=== PATIENT | female | born 1975 | race Caucasian/White ===

== ENCOUNTER 2017-01-13 05:23 | Inpatient (IN) | payer BC ==
[2017-01-02 13:35] VITALS: BMI 34.0
--- NOTE | 2017-01-07 11:56 | HISTORY & PHYSICAL EXAMINATION ---
DATE OF ADMISSION: 01/13/2017 CHIEF COMPLAINT: Right hip pain. HISTORY OF PRESENT ILLNESS: This patient is a 41-year-old female, who works as a nurse at the [employer] who presents for treatment of her right hip. She has got a lifelong history of hip pain and discomfort that she states started in her adolescent years. 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 She underwent a left hip replacement about 7-8 months ago and has done well from this in general. She continues to be bothered by right hip pain. She has lost a lot of weight trying to manage this, but unsuccessfully. She is limited by groin pain, thigh pain and discomfort. She has limited walking tolerance. She has difficulty putting her shoes and socks on. She would now like to proceed with right total hip replacement. PAST MEDICAL HISTORY: Significant for: 1. Heart murmur. 2. Asthma. 3. Anxiety. 4. Gestational diabetes. 5. Obesity with a BMI of 34.5. 6. Gastroesophageal reflux disease. 7. Social smoker. 8. Alcohol 4-6 drinks per week. PREVIOUS SURGERIES: Include: 1. Right thumb surgery in 1990. 2. . 3. Left total hip replacement done 05/13/2016. ALLERGIES: CELEXA WHICH CAUSES CONFUSION. CURRENT MEDICINES: Include: 1. Ventolin inhaler two puffs p.r.n. 2. Flexeril 10 mg for neck pain. 3. Ativan 0.5 mg p.r.n. for anxiety. 4. Phentermine 37.5 mg a day for weight loss. SOCIAL HISTORY: A 41-year-old female. 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 She is , 4-6 drinks per week. Does smoke socially. FAMILY HISTORY: Include heart disease and diabetes. REVIEW OF SYSTEMS: Negative for diabetes, neurologic problems, vascular problems or bleeding disorders. No history of chest pain. No shortness of breath. No history of DVT or PE. PHYSICAL EXAMINATION: GENERAL: Reveals a healthy, pleasant middle-aged female, who looks to be in good health. HEENT: Benign. NECK: Supple. No lymphadenopathy. LUNGS: Clear to auscultation. HEART: Regular rate and rhythm. ABDOMEN: Soft, nontender, nondistended. EXTREMITIES: Grossly neurovascularly intact except as follows. Examination of both hip reveals the patient walks with a slightly antalgic gait. Examination of left hip reveals the incision to be healed nicely. A little bit of thickening of the soft tissues in that area. She is about a 0.5 cm to a cm longer in the left compared to the right. No pain with hip motion. Examination of the right hip reveals a very stiff hip. She has about a 0.5 cm to a cm short on this side. She has a very minimal hip motion. Very stiff hip. She is neurologically intact. Negative straight leg raise. X-RAYS: X-rays of the right hip reveal advanced right hip DJD. She has got complete loss of her superior joint space. She has got osteophytes in bone growths around her hip. Likely has an old slipped capital femoral epiphysis that has healed. The left hip replacement looks to me in good position. ASSESSMENT: A 41-year-old female, 7.5 months out from a left total hip replacement with advanced right hip degenerative joint disease, probably related to a previous slipped capital femoral epiphysis. She has failed conservative treatment and would like a right hip replaced. She is happy with the left hip. PLAN: We are going to take her to the operating room and do a right total hip replacement. The risks and benefits of this procedure were explained to the patient including but not limited to DVT, PE, , infection, neurological injury, vascular injury, bleeding problem, pain, limited range of motion, stiffness, failure to relieve her symptoms, incomplete relief of symptoms, need for further surgery in the future, fracture, leg length inequality, nerve palsy, etc. The patient understands and desires to proceed. Informed consent was obtained. As far as discharge plans, she should be able to be discharged to home, using the [facility] home health program. She did well with that last time. I did tell we will do the best we can to get her leg length equal. MTDD
[~2017-01-13] VITALS: Ht 170.2 cm; Wt 100.0 kg
[2017-01-13] VITALS (9 sets, daily range): BP systolic 99–115; BP diastolic 57–74; PULSE 59–76; TEMP 36.4–37.2; O2SAT 97–99; Ht 170.2 cm; Wt 100.0 kg
[~2017-01-13 05:23] MED LIST: ACET-1256 PO; ALBUAER2 INH; CYCL10TA6 PO; IBUP-1050 PO; LORA-741 PO; NAPR1TAB9 PO; PSYL48.59 PO
[2017-01-13] MEDS ORDERED: TRANEXAMIC ACID INJ 1,000 MG in SODIUM CHLORIDE 0.9% 100ML 100 ML IV SCH (06:00)
[2017-01-13] MEDS ORDERED: LACTATED RINGER'S 1000ML IV SCH (06:00)
[2017-01-13] MEDS ORDERED: LACTATED RINGER'S 1000ML 1,000 ML IV SCH (06:00)
[2017-01-13] MEDS ORDERED: METOCLOPRAMIDE HCL 10 MG TAB PO SCH (06:00)
[2017-01-13] MEDS ORDERED: LACTATED RINGER'S 1000ML 500 ML IV ONE (06:00)
[2017-01-13] MEDS ORDERED: CEFAZOLIN 2000 MG/60 ML D5W 60 ML IV SCH (06:00)
[2017-01-13] MEDS ORDERED: GABAPENTIN 300 MG CAP PO SCH (06:00)
[2017-01-13] MEDS ORDERED: FAMOTIDINE 20 MG TAB PO SCH (06:00)
[2017-01-13] MEDS ORDERED: SCOPOLAMINE 1.5 MG TDSY TD SCH (06:00)
[2017-01-13] MEDS ORDERED: ACETAMINOPHEN 500 MG TAB PO SCH (06:00)
[2017-01-13] MEDS ORDERED: BUPIVACAINE 0.5 % 5 MG/1 ML PF 10ML VIAL ONE (06:28)
[2017-01-13] MEDS ORDERED: BUPIVACAINE/EPINEPHRINE 0.5% MPF 1:200,000 30 ML VIAL ONE (06:33)
[2017-01-13] MEDS ORDERED: BACITRACIN 50000 UNIT VIAL ONE (06:33)
--- NOTE | 2017-01-13 06:43 | History & Physical Bridge Note ---
H&P Re-Evaluation Bridge Note: I have examined the patient, reviewed the History & Physical and in the interval since the performance of the History & Physical I have noted the following changes of clinical significance: No changes noted
[2017-01-13] MEDS ORDERED: MIDAZOLAM HCL 1 MG/ML 2ML VIAL ONE ×2 (06:45→06:46)
[2017-01-13] MEDS ORDERED: FENTANYL CITRATE INJ 50 MCG/1 ML 2 ML VIAL ONE ×3 (06:46→08:57)
[2017-01-13] MEDS ORDERED: LIDOCAINE HCL 2% 2 ML VIAL (20MG/ML) ONE (07:51)
[2017-01-13] MEDS ORDERED: EpHEDrine SULFATE 50MG/5ML SYR ONE (07:51)
[2017-01-13] MEDS ORDERED: PROPOFOL IV EMULSION 10 MG/ML 20 ML VIAL IV ONE (07:51)
[2017-01-13] MEDS ORDERED: KETAMINE HCL INJ 50 MG/ML 10 ML VIAL ONE (08:00)
[2017-01-13] MEDS ORDERED: CEFAZOLIN SOD 1 GM VIAL ONE (08:00)
--- NOTE | 2017-01-13 09:05 | [facility] Post Operative Brief Note ---
Immediate Operative Summary Operative Date Jan 13, 2017. Pre-Operative Diagnosis Right Hip Advanced Degenerative Joint Disease Post-Operative Diagnosis Right Hip Advanced Degenerative Joint Disease Procedure(s) Performed Right Total Hip Arthroplasty--Uncemented Surgeon Dr. Braga Supervisor Phosphatic Fertilizer Surgeon(s) JERRY Perera Estimated Blood Loss 400 cc Findings Right Hip DJD Fluids (cc crystalloids) 1300 cc Specimens A. Right Femoral Head Drains None Anesthesia Spinal Complication(s) None Disposition Recovery Room / PACU
[2017-01-13] MEDS ORDERED: ALUMINUM/MAGNESIUM/SIMETH (MAALOX MAX) 30 ML UDC PO PRN (09:15)
[2017-01-13] MEDS ORDERED: OXYCODONE HCL IR 5 MG TAB (IMMEDIATE RELEASE) PO PRN (09:15)
[2017-01-13] MEDS: ACETAMINOPHEN 500 MG TAB PO SCH ×2 (09:15→17:28)
[2017-01-13] MEDS ORDERED: CYCLOBENZAPRINE HCL 10 MG TAB PO PRN (09:15)
[2017-01-13] MEDS ORDERED: ONDANSETRON INJ 2 MG/ML 2 ML VIAL IV PRN ×2 (09:15→09:45)
[2017-01-13] MEDS ORDERED: HYDROmorphone INJ 1 MG/ML SYR IV PRN (09:15)
[2017-01-13] MEDS ORDERED: METOCLOPRAMIDE HCL INJ 5 MG/ML 2 ML VIAL IV PRN (09:15)
[2017-01-13] MEDS ORDERED: ZOLPIDEM TARTRATE 5 MG TAB PO PRN (09:15)
[2017-01-13] MEDS ORDERED: ALBUTEROL HFA 8 GM INHALER INH PRN (09:15)
[2017-01-13] MEDS ORDERED: MAGNESIUM HYDROXIDE SUSP 30 ML UDC PO PRN (09:15)
[2017-01-13] MEDS ORDERED: SILVER SULFADIAZINE 1% CR 50 GM JAR EXT PRN (09:15)
[2017-01-13] MEDS ORDERED: DiphenhydrAMINE HCL 50 MG/ML VIAL IV PRN (09:15)
[2017-01-13] MEDS ORDERED: BISACODYL 10 MG SUPP PR PRN (09:15)
[2017-01-13] MEDS ORDERED: LORAZEPAM 0.5 MG TAB PO PRN (09:15)
--- NOTE | 2017-01-13 09:35 | Anesthesiology Progress Note ---
Anesthesia Post Op Note Date & Time Jan 13, 2017 at 09:34 Vital Signs Pain Intensity: 4 Vital Signs Past 12 Hours Date Time Temp Pulse Resp B/P (MAP) Pulse Ox O2 Delivery O2 Flow Rate FiO2 01/13/17 09:25 70 16 97/54 100 Diffusion Mask 10 01/13/17 09:15 70 16 108/61 100 Diffusion Mask 10 01/13/17 09:06 36.4 80 16 110/71 100 Diffusion Mask 10 01/13/17 05:43 36.7 64 18 112/57 99 Room Air Notes Mental Status: alert / awake / arousable, participated in evaluation Pt Amnestic to Procedure: Yes Nausea / Vomiting: adequately controlled Pain: adequately controlled Airway Patency, RR, SpO2: stable & adequate BP & HR: stable & adequate Hydration State: stable & adequate Anesthetic Complications: no major complications apparent
[2017-01-13] MEDS ORDERED: HYDROmorphone INJ 0.5 MG/0.5 ML SYR ONE (09:39)
[2017-01-13] MEDS ORDERED: EpHEDrine SULFATE INJ 50 MG/ML AMP IV PRN (09:45)
[2017-01-13] MEDS ORDERED: HYDROmorphone INJ 2 MG/ML SYR/VIAL IV PRN (09:45)
[2017-01-13] MEDS ORDERED: PHENYLEPHRINE 100MCG/ML 5ML SYR IV PRN (09:45)
[2017-01-13] MEDS ORDERED: ATROPINE SULFATE 0.1 MG/ML 5ML SYR IV PRN (09:45)
--- NOTE | 2017-01-13 10:04 | DIAGNOSTIC IMAGING REPORT ---
RIGHT PELVIS/UNILATERAL HIP 1 VIEW CLINICAL HISTORY: Postoperative evaluation. COMPARISON: Pelvis and right hip radiographs May 02, 2017. FINDINGS: Alignment of the total right hip arthroplasty is anatomic. There is no periprosthetic fracture or unexpected radiopaque foreign body. There are skin howard. The appearance of the total left hip arthroplasty is unchanged as well. IMPRESSION: Expected findings following total right hip arthroplasty. Electronically signed by: Talon Cunningham M.D. 01/13/2017 10:03 AM Dictated Date/Time: 01/13/2017 10:02 AM
--- NOTE | 2017-01-13 10:49 | OPERATIVE REPORT ---
DATE OF OPERATION: 01/13/2017 SURGEON: Mike Brgaa MD MOLECULAR SPECTROSCOPIST: JERRY Jo PREOPERATIVE DIAGNOSIS: Right hip degenerative joint disease. POSTOPERATIVE DIAGNOSIS: Same. PROCEDURE PERFORMED: Right uncemented ceramic on highly cross-linked polyethylene total hip arthroplasty. COMPLICATIONS: None. ESTIMATED BLOOD LOSS: 400 mL. FLUID REPLACEMENT: 1300 mL crystalloid fluid replacement. ANESTHESIA: Spinal. DRAINS: None. SPECIMENS: Right femoral head sent for pathology. 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 She has been through extensive conservative treatment. Pain has been really debilitating. She underwent a left hip replacement about 8 months ago and has done well from this. She has elected to proceed with right total hip arthroplasty. OPERATIVE FINDINGS: Operative findings revealed advanced right hip DJD. She had a markedly external rotation contracture of her hip. Very stiff hip. She had osteophytes particularly around the acetabulum and the femoral head. Very stiff hip. Grade 4 bone on bone disease of the acetabulum and femoral head. OPERATIVE IMPLANTS: Operative implants consisted of: 1. A Biomet G7 size 50 mm acetabular shell. 2. A 6.5 cancellous acetabular screws, 1 at 35 mm length and 1 at 20 mm in length. 3. An apex hole eliminator. 4. Biomet vitamin E enriched highly cross-linked polyethylene liner with a 50 mm outer diameter and 32 mm inner diameter. 5. DePuy size 16.5 small stature AML femoral stem. 6. A +5/32 mm ceramic articular ball. OPERATIVE PROCEDURE: The patient taken to the operating room, identified and placed on the operating table in supine position. All contact areas were appropriately padded. IV antibiotics were provided by anesthesia team. A spinal anesthetic had been implemented in the holding area. Garcia catheter was placed in a sterile fashion. The patient was then placed in the left lateral decubitus position. An axillary roll was placed. Stlberg hip positioner was used for positioning. The right hip and leg were then prepped and draped in the usual sterile fashion. A posterolateral approach to the right hip was then performed through a longitudinal incision centered over the greater trochanter. Sharp dissection was carried through the subcutaneous tissue down to the level of the IT band and gluteal fascia. There was a fairly large soft tissue envelope. The IT band and gluteal fascia were incised longitudinally in line with skin incision. The underlying greater trochanteric bursa was excised. The piriformis and external rotators were tagged and taken off the posterior aspect of the femur. Great care was taken throughout the procedure to protect the sciatic nerve at all times. Posterior capsulotomy was then performed leaving a flap for later repair. A lot of the posterior capsule and the posterior labrum was ossified. Hip was internally rotated and dislocated. Femoral neck osteotomy cut was made with the final cut 10 mm above the lesser trochanter. Femoral head was removed and sent for pathology. The femur was retracted anteriorly. Attention was then drawn to the acetabulum. The acetabulum labrum was excised. Once again, much of this was ossified. The pulvinar fat was excised. Sequential reaming of the acetabulum was then performed beginning with a size 43 and progressing up to 49. A 50 mm Biomet G7 acetabular shell was then placed in about 40 degrees of lateral opening and 20 degrees of anteversion. This was fixed with two 6.5 cancellous acetabular screws. Some small anterior osteophytes removed. A trial liner was placed. Attention was then drawn to the femur. The proximal femur was entered with cookie cutter followed by canal finder and lateralizing reamer. Sequential reaming of the femur was then performed beginning with a size 10 and progressing up to a 14.5. We then broached beginning with a 12 small and progressing up to a 15 small. I did countersink this quite a way, so I elected to ream up to a 16 for a larger implant. I broached with a 16.5 small implant. It fit quite well and the cancellous bone was quite sturdy. We elected to use this. Calcar reamer was used to smoothen off the calcar. The final cut was about 1 cm above the lesser trochanter. We then trialed the hip and the +5/32 mm articular ball provided full stability and full extension and external rotation, flexion to 90 degrees, internal rotation to 50+ degrees. We elected to use these implants. Leg lengths clinically appeared equal and soft tissue tension seemed appropriate. I did realize I lengthened her leg some, but the goal was to lengthen equal to the other leg and I felt it was perfect. Attention was then drawn toward placement of these implants. All trial implants were removed. An apex hole eliminator was placed. A highly cross-linked polyethylene liner was placed. A 16.5 small stature AML femoral stem was placed. We did have to ream down the canal with a 16.5 reamer as it was extremely tight. A +5/32 mm ceramic articular ball was placed. The hip was located. It was once again found to be stable. Attention was then drawn toward closing. The wound was irrigated with copious amounts of pulsatile lavage solution. I did inject locally with 60 mL of 0.5% Marcaine with epinephrine. Posterior capsule and external rotators were repaired through drill holes in the posterior trochanter with #2 Ti-Cron suture. The IT band and gluteal fascia were then closed with #1 PDS suture in running fashion. The subcutaneous tissues were then closed with 2 layers with the deep layer #1 Vicryl suture and subcutaneous tissues with 2-0 Dexon suture in a buried interrupted fashion. The skin was closed with skin howard. Leg was then cleaned and dried and a sterile dressing of Xeroform, 4 x 4, sterile ABD pad and foam tape was applied. The patient then transferred to the recovery room in stable condition. The patient tolerated the procedure well with no complications. All needle and sponge counts were correct at the end of the operation. I attest to the content of the Intraoperative Record and any orders documented therein. Any exceptions are noted below. TRAV
[2017-01-13] MEDS: FERROUS GLUCONATE 324 MG TAB PO SCH ×3 (12:30→17:45)
[2017-01-13] MEDS: D5W AND 1/2NSS + 20MEQ KCL 1,000 ML IV SCH ×2 (12:30→17:28)
[2017-01-13] MEDS: KETOROLAC TROMETHAMINE 30 MG/ML VIAL IV. SCH ×3 (12:31→23:57)
--- NOTE | 2017-01-13 15:53 | PROGRESS NOTE ---
DATE: 01/13/2017 SUBJECTIVE: A 41-year-old female postop from a right total hip replacement. She is doing well. Pain is controlled. Denies any chest pain or shortness of breath. Not feeling dizzy or lightheaded. OBJECTIVE: VITAL SIGNS: Temperature is 36.5. Vital signs stable. GENERAL: Reveals a pleasant, middle-aged female. She is sitting up in bed and was using her cell phone. Looks comfortable. LUNGS: Clear to auscultation. HEART: Regular rate and rhythm. ABDOMEN: Soft, nontender, nondistended. EXTREMITIES: Grossly neurovascularly intact except as follows: Examination of the right hip and leg reveals the dressing to be clean, dry and intact. Leg lengths are equal. Hip is located. She is neurologically intact. She can dorsiflex and plantarflex her foot appropriately. X-RAYS: X-rays of the right hip from recovery room reviewed. It shows a right uncemented total hip arthroplasty. Components looked to be in good position. No signs of problems. ASSESSMENT: A 41-year-old female postop from a right total hip replacement, doing well. Hip is located. Pain is controlled. She is neurologically intact. PLAN: 1. DVT prophylaxis including thigh-high TEDs, SCDs, and aspirin twice a day. 2. PT/OT. Weight bear as tolerated. Right total hip protocol. 3. Pain control. Doing well with current pain regimen. 4. IV antibiotics x24 hours. 5. Disposition: Plan is to discharge to home with some home health once adequately recovered.
[2017-01-13] MEDS ORDERED: TRANEXAMIC ACID INJ 1,000 MG in SODIUM CHLORIDE 0.9% 100ML 100 ML IV ONE (16:00)
[2017-01-13] MEDS: CHECK SCOPOLAMINE PATCH PLACEMENT SCH ×2 (16:00→23:58)
[2017-01-13] MEDS: CEFAZOLIN IV 2,000 MG in DEXTROSE 5% 50ML 50 ML IV SCH ×2 (17:16→23:57)
[2017-01-13] MEDS: TAPENTADOL ER 50 MG TABCR PO SCH (21:00)
[2017-01-13] MEDS: DOCUSATE SODIUM 100 MG CAP PO SCH (21:00)
[2017-01-13] MEDS: SENNA 8.6 MG TAB PO SCH (21:00)
[2017-01-13] MEDS: ASPIRIN 325 MG ECTAB PO SCH (22:14)
[2017-01-14] MEDS: ACETAMINOPHEN 500 MG TAB PO SCH ×3 (00:52→17:36)
[2017-01-14] MEDS: D5W AND 1/2NSS + 20MEQ KCL 1,000 ML IV SCH ×2 (00:52→05:39)
[2017-01-14 03:56] VITALS: BP 97/62; PULSE 69; TEMP 37; O2SAT 97
[2017-01-14] MEDS: KETOROLAC TROMETHAMINE 30 MG/ML VIAL IV. SCH ×5 (05:39→23:34)
[2017-01-14 06:07] LABS: BASO % 0.3 %; BASO ABS # 0.02 K/uL (0-0.2); COMPLETE YES; EOS % 0.5 %; HEMATOCRIT 30.8 % (37-47); IG% 0.3 %; LYMPH % 28.8 %; LYMPH ABS # 2.23 K/uL (1.2-3.4); MEAN CELL VOLUME 89.5 fL (80-100); MEAN CORPUSCULAR HEMOGLOBIN 30.8 pg (25-34); MEAN CORPUSCULAR HGB CONC 34.4 g/dl (32-36); MEAN PLATELET VOLUME 9.5 fL (7.4-10.4); MONO % 8.3 %; NEUT % 61.8 %; PLATELET COUNT 221 K/uL (130-400); RED BLOOD COUNT 3.44 M/uL (4.2-5.4); WHITE BLOOD COUNT 7.74 K/uL (4.8-10.8)
[2017-01-14 06:40] LABS: BUN/CREATININE RATIO 12.1 (10-20); CALCIUM 7.7 mg/dl (8.5-10.1); CREATININE 0.69 mg/dl (0.60-1.20); POTASSIUM 3.7 mmol/L (3.5-5.1)
[2017-01-14] MEDS: CHECK SCOPOLAMINE PATCH PLACEMENT SCH ×3 (07:24→23:31)
[2017-01-14 07:55] VITALS: BP 102/68; PULSE 65; TEMP 36.6; O2SAT 100
[2017-01-14 08:14] VITALS: O2SAT 100
[2017-01-14] MEDS: DOCUSATE SODIUM 100 MG CAP PO SCH ×2 (08:30→20:22)
[2017-01-14] MEDS: FERROUS GLUCONATE 324 MG TAB PO SCH ×3 (08:30→17:36)
[2017-01-14] MEDS: MULTIVITAMIN TAB PO SCH (08:31)
[2017-01-14] MEDS: ASPIRIN 325 MG ECTAB PO SCH ×2 (08:31→20:24)
[2017-01-14] MEDS: TAPENTADOL ER 50 MG TABCR PO SCH ×2 (08:31→20:22)
[2017-01-14] MEDS: PANTOprazole SOD 40 MG TAB PO SCH (08:31)
[2017-01-14] MEDS: PSYLLIUM 58.6% PWD PACK S\\F PO SCH (08:31)
--- NOTE | 2017-01-14 08:42 | Anesthesiology Progress Note ---
Anesthesia Post Op Note Date & Time Jan 14, 2017 at 08:42 Vital Signs Vital Signs Past 12 Hours Date Time Temp Pulse Resp B/P (MAP) Pulse Ox O2 Delivery O2 Flow Rate FiO2 01/14/17 08:14 100 Room Air 01/14/17 07:55 36.6 65 14 102/68 (79) 100 Room Air Partial Rebreather 01/14/17 07:15 Room Air 01/14/17 03:56 37.0 69 16 97/62 (74) 97 Room Air 01/14/17 00:05 Room Air 01/13/17 23:18 37.2 63 16 108/64 (79) 97 Room Air Notes Mental Status: alert / awake / arousable, participated in evaluation Pt Amnestic to Procedure: Yes Nausea / Vomiting: adequately controlled Pain: adequately controlled Airway Patency, RR, SpO2: stable & adequate BP & HR: stable & adequate Hydration State: stable & adequate Neuraxial Anesthesia: was administered, sensory block resolved Anesthetic Complications: no major complications apparent
[2017-01-14 11:50] VITALS: BP 110/70; PULSE 77; TEMP 37.1; O2SAT 98
[2017-01-14] MEDS ORDERED: HYDR-5688 PO (12:41)
[2017-01-14] MEDS ORDERED: FRRG PO (12:41)
[2017-01-14] MEDS ORDERED: ASPEC325 PO (12:41)
--- NOTE | 2017-01-14 12:43 | Discharge Instructions ---
Discharge Instructions Date of Service Jan 14, 2017. Admission Reason for Admission: Right Hip Degenerative Joint Disease; Hip Pain Discharge Discharge Diagnosis / Problem: Right Hip Replacement Discharge Goals Goal(s): Decrease discomfort, Improve function, Increase independence, Improve disease control, Therapeutic intervention Activity Recommendations Activity Limitations: per Instructions/Follow-up section (Total Hip PRecautions ) Weightbearing Status: Right weightbearing . Instructions / Follow-Up Instructions / Follow-Up ACTIVITY RECOMMENDATIONS: Physical Therapy: * Aggressive physical therapy is not usually needed. You will learn to take care of yourself safely and walk. * Follow the "Hip Precautions Instructions." * In some cases, the elementary school social worker at the hospital will arrange to have a therapist come to your house for the first couple of weeks to help you learn these skills. * You need to practice on your own or with the help of a family member as needed. * When you learn these skills, most of the therapy can be done on your own. Home Exercise: * You were shown a series of exercises in the hospital. Do these exercises three to four times each day including the exercises you were shown in physical therapy. Walking: * Get up and walk several times each day. For the first four weeks, try not to stand or walk for more than one hour at a time. If you do stand or walk for more than one hour, you will not hurt anything, but your leg will likely swell. * As you feel comfortable, you may change from the walker or crutches to a cane and then to independent walking. MEDICATIONS: New Medicine: * You will likely be taking one or more of these medicines: 1. Carson - Take, as directed, when you need it, every four to six hours to control your pain. 2. Iron Sulfate - Take three times each day for the month after surgery to help you replace the blood lost during surgery. 3. Aspirin - Thins your blood to lessen the chance of forming a blood clot. * The most common side effects of pain medicine and iron are nausea and constipation. If nausea or constipation is too much of a problem or if you have any questions about your new medicines or doses, call [facility] at . We will try to help you manage these issues. VERY IMPORTANT TO READ AND REVIEW" Pain: * The immediate post-operative period after hip replacement surgery is often quite painful. * You are given a prescription for pain medicine. You should take it, as directed, when you need it, especially before physical therapy and before going to bed. Pain that interferes with sleep is very common and can last several months. * You will likely need pain medicine for the first two to four weeks. It will not stop all of the pain. The pain will lessen and as you feel better, you may change to milder pain medicine such as Tylenol. * The most common side effects of pain medicine are nausea and constipation, so don't take more than you need. SPECIAL CARE INSTRUCTIONS: TEDs/Elastic Stockings: * The white elastic stockings help limit swelling and prevent blood clots from forming in your legs. The more you wear them, the more they work. * Wear them for six weeks. Prevention of Infection: * Take antibiotics one hour before any dental cleaning, dental work, urological procedure, gastrointestinal procedure or any invasive surgery in order to prevent your new joint from getting infected. * You may get the antibiotics from the doctor performing the procedure or you may call our office at before and we will call in a prescription to the pharmacy of your choice. Things to Watch For: * Drainage from the incision site that occurs more than one week after your surgery. * Severely increased leg pain or swelling. * Increased redness at the incision site. * Fever above 102 degrees Fahrenheit. * Unusual chest pain or shortness of breath. * Unusual pain or burning with urination. Call [facility] at with any of the above problems or if you have any questions about your medicines or recovery. FOLLOW UP VISIT: Make an appointment to see your doctor for approximately two weeks after surgery for a progress check and staple removal by calling the office at . Current Hospital Diet Patient's current hospital diet: Regular Diet Discharge Diet Recommended Diet: Regular Diet Procedures Procedures Performed: Right Total Hip Arthroplasty--Uncemented Pending Studies Studies pending at discharge: no Medical Emergencies . Who to Call and When: Medical Emergencies: If at any time you feel your situation is an emergency, please call [phone] immediately. . Non-Emergent Contact Non-Emergency issues call your: Surgeon . "Provider Documentation" section prepared by Mike Braga. . VTE Core Measure Inpt VTE Proph given/why not?: Other Anticoagulation, T.E.D. Stockings, SCD's
--- NOTE | 2017-01-14 12:49 | PROGRESS NOTE ---
DATE: 01/14/2017 DATE: 01/14/2017. SUBJECTIVE: A 41-year-old female postop day 1 from right total hip replacement, doing well. Pain is controlled. She says this hip so easier than the last. Denies any chest pain or shortness of breath. Not feeling dizzy or lightheaded. OBJECTIVE: VITAL SIGNS: Temperature 37.1. Vital signs stable. PHYSICAL EXAMINATION: GENERAL: Reveals a healthy pleasant, middle-aged female. She was just getting back from the restroom when I visited her this morning. LUNGS: Clear to auscultation. HEART: Regular rate and rhythm. ABDOMEN: Soft, nontender, nondistended. EXTREMITY EXAMINATION: Grossly neurovascularly intact except as follows: Examination of the right hip and leg reveals the leg to be well aligned. Leg lengths were equal. She can dorsiflex and plantarflex her foot appropriately. Dressing is clean, dry and intact. No significant drainage. LABORATORY DATA: Hemoglobin 10.6, hematocrit 30.8. Electrolytes are stable. ASSESSMENT: A 41-year-old female postop day 1 from right total hip replacement, doing pretty well. Pain seems to be controlled. She is slightly anemic, but asymptomatic. PLAN: 1. DVT prophylaxis including thigh-high TEDs, SCDs, and aspirin twice a day. 2. PT/OT. Weightbearing as tolerated. Right total hip protocol. 3. Pain control. Doing pretty well with current pain regimen. 4. Anemia. Will continue iron supplementation. Currently, asymptomatic and can certainly tolerate this level of hemoglobin/hematocrit. 5. Disposition. Plan to discharge to home with some home health once adequately recovered.
[2017-01-14 15:21] VITALS: BP 108/68; PULSE 80; TEMP 37.1; O2SAT 97
[2017-01-14] MEDS: SENNA 8.6 MG TAB PO SCH (20:23)
[2017-01-14 23:32] VITALS: BP 103/57; PULSE 77; TEMP 37.4; O2SAT 97
[2017-01-15] MEDS: ACETAMINOPHEN 500 MG TAB PO SCH ×2 (00:50→09:24)
[2017-01-15] MEDS: KETOROLAC TROMETHAMINE 30 MG/ML VIAL IV. SCH (06:00)
[2017-01-15 06:35] VITALS: BP 112/66; PULSE 78; TEMP 37.1; O2SAT 97
[2017-01-15] MEDS ORDERED: IBUPROFEN 600 MG TAB PO PRN (07:30)
--- NOTE | 2017-01-15 07:40 | PROGRESS NOTE ---
DATE: 01/15/2017 SUBJECTIVE: A 41-year-old female, postop day #2 from right total hip replacement. She is doing pretty well: She has got a little bit of a headache this morning; that is her main complaint. Hip is sore, but the pain is manageable. No chest pain or shortness of breath. Not feeling dizzy or lightheaded. OBJECTIVE: VITAL SIGNS: Temperature is 37.1. Vital signs are stable. GENERAL: Reveals a pleasant, middle-aged female. She is sitting up at her bedside chair and looks comfortable. EXTREMITIES: Examination of the right hip reveals the dressing to be clean, dry and intact. Thigh is soft and supple. Hip is located. She is neurologically intact. ASSESSMENT: This is a 41-year-old female postoperative day #2 from a right total hip replacement, doing pretty well. Her major complaint is headache. This could be somewhat related to the inability to smoke in the hospital versus spinal headache from anesthetic versus other. PLAN: 1. DVT prophylaxis including thigh-high TEDs, SCDs and aspirin twice a day. 2. PT/OT. She can weightbear as tolerated. Right total hip protocol. 3. Pain control, doing pretty well with pain control from her hip standpoint. 4. Headache; we will let her use some ibuprofen in the hospital here. I think when she gets to her home environment she will likely be better. 5. Disposition: Plan to discharge to home with some home health. TRAV
[2017-01-15 07:45] VITALS: BP 112/71; PULSE 77; TEMP 37.6; O2SAT 95
[2017-01-15] MEDS: DOCUSATE SODIUM 100 MG CAP PO SCH (07:50)
[2017-01-15] MEDS: FERROUS GLUCONATE 324 MG TAB PO SCH ×2 (07:50→11:24)
[2017-01-15] MEDS: MULTIVITAMIN TAB PO SCH (07:50)
[2017-01-15] MEDS: TAPENTADOL ER 50 MG TABCR PO SCH (07:50)
[2017-01-15] MEDS: ASPIRIN 325 MG ECTAB PO SCH (07:51)
[2017-01-15] MEDS: PSYLLIUM 58.6% PWD PACK S\\F PO SCH (07:51)
[2017-01-15] MEDS: PANTOprazole SOD 40 MG TAB PO SCH (07:51)
[2017-01-15 09:02] VITALS: O2SAT 95
[2017-01-15 12:28] VITALS: BP 112/71; PULSE 77; TEMP 37.6; O2SAT 95
--- NOTE | 2017-01-16 07:20 | EDITING REQUIRED CODING QUERY ---
ANEMIA To promote full compliance with coding requirements relating to patient care, physician participation is requested in all cases of medical lab specialist uncertainty. Please assist us with the question(s) below: Coding Question(s): The record reflects the following clinical documentation: Anemia Please clarify if anemia was: ( X ) POA ( ) Not POA ( ) Unable to determine ( ) Other, please explain Also, more specificity is needed for code selection for anemia. [place] indicate the type of anemia this patient had: (x ) Acute blood loss anemia (x ) Acute postoperative anemia due to dilutional fluids ( ) Chronic blood loss anemia ( ) Iron deficient anemia due to blood loss ( ) Iron deficiency anemia ( ) Anemia, unspecified or other ( ) Other: (please specify) ( ) Unable to determine Thank you for your time, JOHN Mcgregor, PIPELINE WELDER
--- NOTE | 2017-01-21 14:50 | DISCHARGE SUMMARY ---
ADMITTING PHYSICIAN AND SURGEON: Dr. Braga. ADMITTING DIAGNOSIS: Right hip degenerative joint disease. SURGERY PERFORMED: Right total hip arthroplasty. SECONDARY DIAGNOSES: Heart murmur, asthma, anxiety, gestational diabetes, obesity, gastroesophageal reflux disease, smoking history and alcohol use. CONSULTS: None obtained. HISTORY AND PHYSICAL EXAMINATION: Well documented in the patient's chart. HOSPITAL COURSE: The patient was admitted on 01/13/2017 underwent total hip arthroplasty, tolerated the procedure well. There were no complications. She was transferred to the PACU postoperatively and later to the orthopedic floor for further care. She was given Ancef for antibiotic prophylaxis, ALAN stockings, SCDs and aspirin for DVT prophylaxis. Hemoglobin, hematocrit and vital signs were monitored during her hospital stay and remained stable. She did not require any blood transfusions. There were no complications. By postoperative day 2, she was tolerating a regular diet, pain was controlled with oral pain medicine. She was participating in physical therapy and had no signs or symptoms of deep vein thrombosis. On postop day 2, she was discharged home and set up with home health services. She was given printed discharge instructions including new prescriptions for aspirin 325 mg b.i.d., iron supplement, Fortine. Continue her home medications. Continue physical therapy, weightbearing as tolerated, ALAN stockings, total hip precautions. Follow up in 10-12 days or sooner if there are any problems or concerns.
== END 2017-01-15 12:50 | disposition home health service (06) | DRG 470 ==
LOC: C.ACU 05:23 → C.3E 08:35 → ENRESERV 09:52
PROVIDERS: ADMIT Orthopaedic Surgery Sports Medicine; ATTEND Orthopaedic Surgery Sports Medicine
PROC: 0SR904A Replacement of Right Hip Joint with Ceramic on Polyethylene Synthetic Substitute, Uncemented, Open Approach (ICD-10-PCS; principal; 2017-01-13 07:00)
DX: M16.11 Unilateral primary osteoarthritis, right hip (principal); D62 Acute posthemorrhagic anemia; R51 Headache; J45.909 Unspecified asthma, uncomplicated; F41.9 Anxiety disorder, unspecified; F17.200 Nicotine dependence, unspecified, uncomplicated; E66.9 Obesity, unspecified; Z68.34 Body mass index [BMI] 34.0-34.9, adult; Z87.39 Personal history of other diseases of the musculoskeletal system and connective tissue; Z96.642 Presence of left artificial hip joint; Z79.899 Other long term (current) drug therapy